=== PATIENT | male | born 1970 | race Caucasian/White ===

== ENCOUNTER 2019-03-01 06:05 | Observation (INO) ==
[2019-03-01] MEDS ORDERED: CeFAZolin Syr 2,000MG/20 ML 2,000 MG/20 ML SYRINGE IVPB ONE (06:25)
[2019-03-01] MEDS ORDERED: Albuterol 2.5 MG/3 ML NEBULIZER IH PRN ×2 (06:25→07:06)
[2019-03-01] MEDS ORDERED: Ringers Solution, Lactated 1,000 ML IVC SCH (06:30)
[2019-03-01] MEDS ORDERED: Ondansetron 4 MG/2 ML VIAL IVP ONE (07:06)
[2019-03-01] MEDS ORDERED: Acetaminophen IV 1,000 MG/100 ML INFUS..BTL IVPB ONE (07:06)
[2019-03-01] MEDS ORDERED: *HR* Labetalol 20 MG/4 ML SYRINGE IVP PRN (07:06)
[2019-03-01] MEDS ORDERED: *HR* OxyCODONE Immed Rel 5 MG TABLET PO PRN (07:06)
[2019-03-01] MEDS ORDERED: *HR* Promethazine 25 MG/ML VIAL IVP PRN (07:06)
[2019-03-01] MEDS ORDERED: Gabapentin 300 MG CAPSULE PO ONE (07:06)
[2019-03-01] MEDS ORDERED: Lidocaine -MPF 4% 5 ML AMPUL ONE (07:07)
[2019-03-01] MEDS ORDERED: *HR* Midazolam HCl 2 MG/2 ML VIAL ONE (07:07)
[2019-03-01] MEDS ORDERED: Lidocaine -MPF 2% 2 ML VIAL ONE ×2 (07:07→10:16)
[2019-03-01] MEDS ORDERED: *HR* FentaNYL (PF) 100 MCG/2 ML VIAL ONE ×2 (07:07→10:39)
[2019-03-01] MEDS ORDERED: *HR* Succinylcholine 200 MG/10 ML VIAL IVP ONE (07:07)
[2019-03-01] MEDS ORDERED: *HR* Propofol 200 MG/20 ML VIAL IVP ONE (07:07)
[2019-03-01] MEDS ORDERED: Dexamethasone 4 MG/ML VIAL ONE (07:07)
[2019-03-01] MEDS ORDERED: *HR* Remifentanil 1 MG VIAL IVP ONE ×2 (07:21→09:26)
[2019-03-01] MEDS ORDERED: Heparin 1,000 UNITS/500 mL 500 ML ONE (07:33)
[2019-03-01] MEDS ORDERED: Bacitracin 50,000 UNIT, Polymyxin B Sulfate 500,000 UNIT, Sodium Chloride IRRigation 1,... IR ONE (07:45)
[2019-03-01] MEDS ORDERED: *HR* PHENYLEPHRINE 1,000 MCG/10 ML SYRINGE IVP ONE ×3 (08:05→10:31)
[2019-03-01] MEDS ORDERED: *HR* Phenylephrine 10 MG/ML VIAL ONE (08:16)
[2019-03-01] MEDS ORDERED: Neostigmine Methylsulfate 3 MG/3 ML SYRINGE ONE (09:40)
[2019-03-01] MEDS: *HR* HYDROmorphone (PF) 1 MG/ML SYRINGE IVP PRN ×4 (11:27→11:48)
[2019-03-01] MEDS ORDERED: Ibuprofen 800 MG TABLET PO PRN (13:04)
[2019-03-01] MEDS ORDERED: Naloxone 0.4 MG/ML INJ IVP PRN (13:04)
[2019-03-01] MEDS ORDERED: Ondansetron 4 MG/2 ML VIAL IVP PRN (13:04)
[2019-03-01] MEDS ORDERED: Acetaminophen 325 MG TABLET PO PRN (13:04)
[2019-03-01] MEDS ORDERED: diazePAM 2 MG TABLET PO PRN (14:09)
[2019-03-01] MEDS: *HR* OxyCODONE Immed Rel 5 MG TABLET PO PRN ×2 (15:01→20:09)
[2019-03-01] MEDS: Ringers Solution, Lactated 1,000 ML IVC SCH ×2 (19:18→23:05)
[2019-03-02] MEDS: *HR* OxyCODONE Immed Rel 5 MG TABLET PO PRN ×4 (01:32→15:08)
[2019-03-02] MEDS: *HR* HYDROcodone/Acet 5/325 mg TABLET PO PRN ×2 (04:21→13:01)
[2019-03-02] MEDS: Lisinopril 20 MG TABLET PO SCH (09:16)
[2019-03-02] MEDS: Gabapentin 400 MG CAPSULE PO SCH ×2 (17:25→21:43)
[2019-03-02] MEDS: diazePAM 2 MG TABLET PO PRN (17:31)
[2019-03-02] MEDS: Nicotine 21 MG PATCH.TD24 TD SCH (17:32)
[2019-03-02] MEDS: Acetaminophen 325 MG TABLET PO SCH (17:34)
[2019-03-02] MEDS: Mirtazapine 15 MG TABLET PO SCH (20:24)
[2019-03-03] MEDS: Acetaminophen 325 MG TABLET PO SCH ×4 (01:55→16:45)
[2019-03-03] MEDS: *HR* OxyCODONE Immed Rel 5 MG TABLET PO PRN ×4 (01:57→22:00)
[2019-03-03] MEDS: diazePAM 2 MG TABLET PO PRN ×2 (03:04→12:10)
[2019-03-03] MEDS: *HR* HYDROcodone/Acet 5/325 mg TABLET PO PRN (08:03)
[2019-03-03] MEDS: Nicotine 21 MG PATCH.TD24 TD SCH (08:03)
[2019-03-03] MEDS: Lisinopril 20 MG TABLET PO SCH (08:04)
[2019-03-03] MEDS: Gabapentin 400 MG CAPSULE PO SCH ×3 (08:04→21:59)
[2019-03-03] MEDS: Mirtazapine 15 MG TABLET PO SCH (21:59)
[2019-03-04] MEDS: Acetaminophen 325 MG TABLET PO SCH ×5 (00:35→23:23)
[2019-03-04] MEDS: *HR* OxyCODONE Immed Rel 5 MG TABLET PO PRN ×3 (03:40→20:14)
[2019-03-04] MEDS: Gabapentin 400 MG CAPSULE PO SCH ×3 (09:56→20:13)
[2019-03-04] MEDS: Lisinopril 20 MG TABLET PO SCH (09:56)
[2019-03-04] MEDS: Nicotine 21 MG PATCH.TD24 TD SCH (09:58)
[2019-03-04] MEDS: *HR* HYDROcodone/Acet 5/325 mg TABLET PO PRN (18:30)
[2019-03-04] MEDS: Ringers Solution, Lactated 1,000 ML IVC SCH ×3 (19:31→20:27)
[2019-03-04] MEDS: Mirtazapine 15 MG TABLET PO SCH (20:13)
[2019-03-05] MEDS: diazePAM 2 MG TABLET PO PRN (03:29)
[2019-03-05] MEDS: Acetaminophen 325 MG TABLET PO SCH ×2 (05:31→12:17)
[2019-03-05] MEDS: *HR* OxyCODONE Immed Rel 5 MG TABLET PO PRN (05:31)
[2019-03-05] MEDS: Lisinopril 20 MG TABLET PO SCH (09:23)
[2019-03-05] MEDS: Gabapentin 400 MG CAPSULE PO SCH (09:23)
[2019-03-05] MEDS: *HR* HYDROcodone/Acet 5/325 mg TABLET PO PRN (09:23)
[2019-03-05] MEDS: Nicotine 21 MG PATCH.TD24 TD SCH (09:24)
[2019-03-05] MEDS: Ringers Solution, Lactated 1,000 ML IVC SCH (09:24)
[2019-03-05 11:50] VITALS: BP 122/78
== END 2019-03-05 12:27 | disposition home or self-care (01) ==
LOC: SAMDAY 06:05 → 3NENU 06:05
PROVIDERS: ADMIT Orthopaedic Surgery Orthopaedic Surgery of the Spine; ATTEND Orthopaedic Surgery Orthopaedic Surgery of the Spine

== ENCOUNTER 2021-04-15 06:16 | Inpatient (IN) ==
[~2021-04-15 06:16] MED LIST: Acetaminophen IV 1,000 MG/100 ML BAG IVPB ONE; Famotidine 20 MG/2 ML VIAL IVP ONE; Polymyxin B Sulfate 500,000 UNIT, Sodium Chloride IRRigation 1,000 ML IR ONE; Pregabalin 75 MG CAPSULE PO ONE
[2021-04-15] MEDS ORDERED: CeFAZolin Syr 2,000MG/20 ML 2,000 MG/20 ML SYRINGE IVPB ONE (06:52)
[2021-04-15] MEDS ORDERED: Ringers Solution, Lactated 1,000 ML IVC SCH (07:00)
[2021-04-15] MEDS ORDERED: Ipratropium/Albuterol Neb 3 ML IH ONE (07:11)
[2021-04-15] MEDS ORDERED: Vancomycin 1,000 MG VIAL ONE (07:15)
[2021-04-15] MEDS ORDERED: *HR* Remifentanil 2 MG VIAL IVP ONE (07:21)
[2021-04-15] MEDS ORDERED: *HR* Midazolam HCl 2 MG/2 ML VIAL ONE (07:23)
[2021-04-15] MEDS ORDERED: *HR* FentaNYL (PF) 100 MCG/2 ML VIAL ONE (07:23)
[2021-04-15] MEDS ORDERED: *HR* Propofol 200 MG/20 ML VIAL IVP ONE (07:23)
[2021-04-15] MEDS ORDERED: *HR* Rocuronium Bromide 50 MG/5 ML VIAL ONE (07:24)
[2021-04-15] MEDS ORDERED: Ondansetron 4 MG/2 ML VIAL ONE (07:24)
[2021-04-15] MEDS ORDERED: Lidocaine HCL 4 ML Topical Solution (Laryng-O-Jet Kit Sterile Pak) TP ONE (07:24)
[2021-04-15] MEDS ORDERED: Lidocaine -MPF 2% 5 ML VIAL ONE (07:24)
[2021-04-15] MEDS ORDERED: *HR* Succinylcholine 200 MG/10 ML VIAL IVP ONE (07:24)
[2021-04-15] MEDS ORDERED: *HR* Phenylephrine 10 MG/ML VIAL ONE (09:11)
[2021-04-15] MEDS ORDERED: Ondansetron 4 MG/2 ML VIAL IVP PRN ×2 (09:28→13:02)
[2021-04-15] MEDS ORDERED: Albuterol 2.5 MG/3 ML NEBULIZER IH PRN (09:28)
[2021-04-15] MEDS ORDERED: *HR* HYDROmorphone PF 0.5 MG/0.5 ML SYRINGE IVP PRN (09:28)
[2021-04-15] MEDS ORDERED: *HR* HYDROMORPHONE 2 MG/ML VIAL ONE (10:18)
[2021-04-15] MEDS: *HR* FentaNYL (PF) 100 MCG/2 ML VIAL IVP PRN ×4 (11:08→11:40)
[2021-04-15] MEDS ORDERED: Acetaminophen 325 MG TABLET PO PRN (13:02)
[2021-04-15] MEDS ORDERED: Naloxone 0.4 MG/ML INJ IVP PRN (13:02)
[2021-04-15] MEDS: Gabapentin 300 MG CAPSULE PO SCH ×2 (14:16→20:32)
[2021-04-15] MEDS: *HR* OxyCODONE Immed Rel 5 MG TABLET PO PRN (14:16)
[2021-04-15] MEDS: Ringers Solution, Lactated 1,000 ML IVC SCH (20:32)
[2021-04-16] MEDS: *HR* OxyCODONE Immed Rel 5 MG TABLET PO PRN ×3 (03:20→17:37)
[2021-04-16] MEDS: Ringers Solution, Lactated 1,000 ML IVC SCH ×2 (07:38→18:47)
[2021-04-16] MEDS: lisinopriL 20 MG TABLET PO SCH (08:25)
[2021-04-16] MEDS: Aspirin Enteric Coated 81 MG Tablet PO SCH (08:25)
[2021-04-16] MEDS: Gabapentin 300 MG CAPSULE PO SCH ×3 (08:25→20:46)
[2021-04-16 10:16] LABS: Hematocrit 46.4 % (37.5-50.1); Hemoglobin 15.5 g/dL (12.9-16.9); Mean Corpuscular HGB Conc 33.4 g/dL (31.6-35.5); Mean Corpuscular Hemoglobin 31.5 pg (28.0-33.3); Mean Corpuscular Volume 94.3 fL (83.0-100.0); Mean Platelet Volume 10.1 fL (9.4-12.4); Platelet Count 242 K/mcL (140-400); Red Blood Count 4.92 M/mcL (4.19-5.50); Red Cell Distribution Width 14.2 % (11.5-14.5); White Blood Count 19.7 K/mcL (4.3-11.1)
[2021-04-16] MEDS: tiZANidine 4 MG TABLET PO PRN ×2 (11:01→20:46)
[2021-04-16 12:22] LABS: BUN/Creatinine Ratio 26 (6-26); Blood Urea Nitrogen 18 mg/dL (6-20); Carbon Dioxide 26 mEq/L (23-29); Chloride 100 mEq/L (98-107); Glucose 103 mg/dL (70-105); Osmolality,Calculated 286 (280-300); Potassium 3.8 mEq/L (3.5-5.1); Sodium 137 mEq/L (136-145); Troponin I < 0.03 ng/mL (< 0.04); eGFR For African Americans > 60 (> 60); eGFR For Non-African Americans > 60 (> 60)
[2021-04-16] MEDS ORDERED: Ipratropium/Albuterol Neb 3 ML IH PRN (13:16)
[2021-04-16] MEDS: Ipratropium/Albuterol Neb 3 ML IH SCH ×2 (16:01→20:28)
[2021-04-17] MEDS: *HR* OxyCODONE Immed Rel 5 MG TABLET PO PRN ×5 (01:27→18:18)
[2021-04-17] MEDS: Ipratropium/Albuterol Neb 3 ML IH SCH ×5 (03:42→21:33)
[2021-04-17 05:13] LABS: Basophils # 0.1 K/mcL (0.0-0.2); Basophils % 0.3 %; Eosinophils % 0.1 %; Hematocrit 46.2 % (37.5-50.1); Hemoglobin 15.2 g/dL (12.9-16.9); Immature Granulocytes % 0.6 % (0-4); Lymphocytes % 15.6 %; Mean Corpuscular HGB Conc 32.9 g/dL (31.6-35.5); Mean Corpuscular Volume 94.3 fL (83.0-100.0); Mean Platelet Volume 10.4 fL (9.4-12.4); Monocytes # 1.7 K/mcL (0.0-1.3); Monocytes % 8.8 %; Neutrophils # 14.1 K/mcL (1.6-8.9); Platelet Count 237 K/mcL (140-400); Red Cell Distribution Width 14.3 % (11.5-14.5); Segmented Neutrophils % 74.6 %; White Blood Count 18.9 K/mcL (4.3-11.1)
[2021-04-17 05:25] LABS: BUN/Creatinine Ratio 29 (6-26); Blood Urea Nitrogen 20 mg/dL (6-20); Calcium 8.5 mg/dL (8.6-10.3); Carbon Dioxide 24 mEq/L (23-29); Chloride 103 mEq/L (98-107); Glucose 90 mg/dL (70-105); Osmolality,Calculated 278 (280-300); Potassium 3.9 mEq/L (3.5-5.1); Sodium 133 mEq/L (136-145); eGFR For African Americans > 60 (> 60); eGFR For Non-African Americans > 60 (> 60)
[2021-04-17] MEDS: Gabapentin 300 MG CAPSULE PO SCH ×3 (08:41→19:41)
[2021-04-17] MEDS: lisinopriL 20 MG TABLET PO SCH (08:41)
[2021-04-17] MEDS: Aspirin Enteric Coated 81 MG Tablet PO SCH (08:41)
[2021-04-17] MEDS: tiZANidine 4 MG TABLET PO PRN (08:42)
[2021-04-18] MEDS: Ipratropium/Albuterol Neb 3 ML IH SCH ×4 (03:24→20:08)
[2021-04-18 05:37] LABS: Basophils % 0.3 %; Eosinophils # 0.1 K/mcL (0.0-0.6); Eosinophils % 0.7 %; Hemoglobin 15.5 g/dL (12.9-16.9); Immature Granulocytes % 0.4 % (0-4); Lymphocytes # 2.4 K/mcL (0.6-4.6); Lymphocytes % 17.6 %; Mean Corpuscular HGB Conc 33.7 g/dL (31.6-35.5); Mean Corpuscular Hemoglobin 31.4 pg (28.0-33.3); Mean Corpuscular Volume 93.3 fL (83.0-100.0); Mean Platelet Volume 10.3 fL (9.4-12.4); Monocytes # 1.2 K/mcL (0.0-1.3); Monocytes % 8.7 %; Neutrophils # 9.8 K/mcL (1.6-8.9); Platelet Count 248 K/mcL (140-400); Red Blood Count 4.93 M/mcL (4.19-5.50); Red Cell Distribution Width 13.9 % (11.5-14.5); Segmented Neutrophils % 72.3 %; White Blood Count 13.5 K/mcL (4.3-11.1)
[2021-04-18 05:48] LABS: BUN/Creatinine Ratio 30 (6-26); Blood Urea Nitrogen 18 mg/dL (6-20); Calcium 8.8 mg/dL (8.6-10.3); Carbon Dioxide 25 mEq/L (23-29); Chloride 100 mEq/L (98-107); Glucose 110 mg/dL (70-105); Magnesium 1.8 mg/dL (1.6-2.6); Osmolality,Calculated 277 (280-300); Phosphorous 2.8 mg/dL (2.7-4.5); Potassium 3.8 mEq/L (3.5-5.1); Sodium 132 mEq/L (136-145); eGFR For African Americans > 60 (> 60); eGFR For Non-African Americans > 60 (> 60)
[2021-04-18] MEDS: Gabapentin 300 MG CAPSULE PO SCH ×3 (07:33→20:02)
[2021-04-18] MEDS: *HR* OxyCODONE Immed Rel 5 MG TABLET PO PRN ×3 (07:34→20:02)
[2021-04-18] MEDS: lisinopriL 20 MG TABLET PO SCH (07:34)
[2021-04-18] MEDS: Aspirin Enteric Coated 81 MG Tablet PO SCH (07:34)
[2021-04-18] MEDS ORDERED: *HR* HYDROcodone/Acet 7.5/325 mg TABLET PO ONE (08:57)
[2021-04-18] MEDS: tiZANidine 4 MG TABLET PO PRN (10:06)
[2021-04-18] MEDS: Nicotine 14 MG PATCH.TD24 TD SCH (10:28)
[2021-04-18] MEDS: diazePAM 5 MG TABLET PO PRN ×2 (10:33→21:14)
[2021-04-18] MEDS: polyethylene glycoL 3350 17 GM POWD.PACK PO SCH (11:42)
[2021-04-18] MEDS ORDERED: Fluticasone Propionate Nasal 50 MCG/SPRAY BOTTLE NS PRN (21:59)
[2021-04-19] MEDS: *HR* OxyCODONE Immed Rel 5 MG TABLET PO PRN ×3 (00:08→20:00)
[2021-04-19] MEDS: tiZANidine 4 MG TABLET PO PRN (02:36)
[2021-04-19] MEDS: Ipratropium/Albuterol Neb 3 ML IH SCH ×4 (04:12→20:43)
[2021-04-19] MEDS: Gabapentin 300 MG CAPSULE PO SCH ×3 (09:37→20:00)
[2021-04-19] MEDS: lisinopriL 20 MG TABLET PO SCH (09:37)
[2021-04-19] MEDS: Aspirin Enteric Coated 81 MG Tablet PO SCH (09:38)
[2021-04-19] MEDS: Nicotine 14 MG PATCH.TD24 TD SCH (09:38)
[2021-04-19] MEDS: polyethylene glycoL 3350 17 GM POWD.PACK PO SCH (09:38)
[2021-04-19] MEDS: diazePAM 5 MG TABLET PO PRN ×2 (13:53→22:01)
[2021-04-20] MEDS: Ipratropium/Albuterol Neb 3 ML IH SCH ×4 (03:36→20:16)
[2021-04-20] MEDS ORDERED: *HR* OxyCODONE Immed Rel 5 MG TABLET PO ONE (04:27)
[2021-04-20] MEDS: Gabapentin 300 MG CAPSULE PO SCH ×3 (07:46→20:52)
[2021-04-20] MEDS: Aspirin Enteric Coated 81 MG Tablet PO SCH (07:46)
[2021-04-20] MEDS: Nicotine 14 MG PATCH.TD24 TD SCH (07:46)
[2021-04-20] MEDS: diazePAM 5 MG TABLET PO PRN ×2 (07:46→16:01)
[2021-04-20] MEDS: lisinopriL 20 MG TABLET PO SCH (07:46)
[2021-04-20] MEDS: *HR* OxyCODONE Immed Rel 5 MG TABLET PO PRN ×3 (07:46→19:14)
[2021-04-20] MEDS: polyethylene glycoL 3350 17 GM POWD.PACK PO SCH (07:46)
[2021-04-21] MEDS: Ipratropium/Albuterol Neb 3 ML IH SCH ×4 (03:56→20:11)
[2021-04-21] MEDS: Gabapentin 300 MG CAPSULE PO SCH ×3 (08:21→22:39)
[2021-04-21] MEDS: Nicotine 14 MG PATCH.TD24 TD SCH (08:22)
[2021-04-21] MEDS: Aspirin Enteric Coated 81 MG Tablet PO SCH (08:22)
[2021-04-21] MEDS: lisinopriL 20 MG TABLET PO SCH (08:22)
[2021-04-21] MEDS: *HR* OxyCODONE Immed Rel 5 MG TABLET PO PRN ×2 (08:22→14:50)
[2021-04-21] MEDS: polyethylene glycoL 3350 17 GM POWD.PACK PO SCH (08:25)
[2021-04-21] MEDS: diazePAM 5 MG TABLET PO PRN ×2 (12:59→22:39)
[2021-04-21] MEDS: *HR* HYDROcodone/Acet 10/325 mg TABLET PO PRN (19:18)
[2021-04-22] MEDS: *HR* HYDROcodone/Acet 10/325 mg TABLET PO PRN ×2 (01:50→20:27)
[2021-04-22] MEDS: tiZANidine 4 MG TABLET PO PRN (02:13)
[2021-04-22] MEDS: Ipratropium/Albuterol Neb 3 ML IH SCH ×4 (03:19→20:11)
[2021-04-22] MEDS: Nicotine 14 MG PATCH.TD24 TD SCH (08:08)
[2021-04-22] MEDS: polyethylene glycoL 3350 17 GM POWD.PACK PO SCH (08:08)
[2021-04-22] MEDS: Aspirin Enteric Coated 81 MG Tablet PO SCH (08:09)
[2021-04-22] MEDS: Gabapentin 300 MG CAPSULE PO SCH ×3 (08:09→20:26)
[2021-04-22] MEDS: lisinopriL 20 MG TABLET PO SCH (08:10)
[2021-04-22] MEDS: diazePAM 5 MG TABLET PO PRN ×2 (09:54→18:36)
[2021-04-22 13:25] LABS: Basophils # 0.1 K/mcL (0.0-0.2); Basophils % 0.4 %; Eosinophils # 0.3 K/mcL (0.0-0.6); Eosinophils % 1.7 %; Hematocrit 45.1 % (37.5-50.1); Hemoglobin 15.4 g/dL (12.9-16.9); Immature Granulocytes % 0.6 % (0-4); Lymphocytes # 2.1 K/mcL (0.6-4.6); Lymphocytes % 14.2 %; Mean Corpuscular HGB Conc 34.1 g/dL (31.6-35.5); Mean Corpuscular Hemoglobin 32.2 pg (28.0-33.3); Mean Corpuscular Volume 94.2 fL (83.0-100.0); Mean Platelet Volume 10.1 fL (9.4-12.4); Monocytes # 1.4 K/mcL (0.0-1.3); Monocytes % 9.3 %; Neutrophils # 10.7 K/mcL (1.6-8.9); Platelet Count 367 K/mcL (140-400); Red Blood Count 4.79 M/mcL (4.19-5.50); Red Cell Distribution Width 13.5 % (11.5-14.5); Segmented Neutrophils % 73.8 %; White Blood Count 14.5 K/mcL (4.3-11.1)
[2021-04-22] MEDS ORDERED: MOM Conc 10 ML UD.LIQ PO PRN (18:00)
[2021-04-23] MEDS ORDERED: 0.9 % Sodium Chloride 500 ML IVC ONE (09:29)
[2021-04-23] MEDS: Aspirin Enteric Coated 81 MG Tablet PO SCH (10:41)
[2021-04-23] MEDS: Gabapentin 300 MG CAPSULE PO SCH ×3 (10:42→20:15)
[2021-04-23] MEDS: lisinopriL 20 MG TABLET PO SCH (10:42)
[2021-04-23] MEDS: polyethylene glycoL 3350 17 GM POWD.PACK PO SCH (10:42)
[2021-04-23] MEDS: Nicotine 14 MG PATCH.TD24 TD SCH (10:42)
[2021-04-23] MEDS: 0.9 % Sodium Chloride 1,000 ML IVC SCH ×2 (10:43→20:20)
[2021-04-23] MEDS: *HR* HYDROcodone/Acet 10/325 mg TABLET PO PRN ×2 (11:09→17:49)
[2021-04-23] MEDS: diazePAM 5 MG TABLET PO PRN (12:54)
[2021-04-23] MEDS: tiZANidine 4 MG TABLET PO PRN (20:16)
[2021-04-24] MEDS: *HR* HYDROcodone/Acet 10/325 mg TABLET PO PRN ×4 (02:51→19:02)
[2021-04-24] MEDS: diazePAM 5 MG TABLET PO PRN ×2 (05:59→19:34)
[2021-04-24] MEDS: Gabapentin 300 MG CAPSULE PO SCH ×3 (07:51→21:37)
[2021-04-24] MEDS: Aspirin Enteric Coated 81 MG Tablet PO SCH (07:51)
[2021-04-24] MEDS: polyethylene glycoL 3350 17 GM POWD.PACK PO SCH (07:52)
[2021-04-24] MEDS: lisinopriL 20 MG TABLET PO SCH (07:52)
[2021-04-24] MEDS: Nicotine 14 MG PATCH.TD24 TD SCH (07:52)
[2021-04-24] MEDS: tiZANidine 4 MG TABLET PO PRN ×2 (11:04→21:37)
[2021-04-25] MEDS: *HR* HYDROcodone/Acet 10/325 mg TABLET PO PRN ×2 (00:59→05:28)
[2021-04-25 06:36] VITALS: BP 109/64; PULSE 87; TEMP 97.8; O2SAT 96
[2021-04-25] MEDS: Gabapentin 300 MG CAPSULE PO SCH (08:20)
[2021-04-25] MEDS: Aspirin Enteric Coated 81 MG Tablet PO SCH (08:20)
[2021-04-25] MEDS: lisinopriL 20 MG TABLET PO SCH (08:21)
[2021-04-25] MEDS: Nicotine 14 MG PATCH.TD24 TD SCH (08:22)
[2021-04-25] MEDS: polyethylene glycoL 3350 17 GM POWD.PACK PO SCH (08:22)
== END 2021-04-25 10:33 | disposition home or self-care (01) | DRG 304 ==
LOC: SDCAOSI 06:16 → 4WAOSI 06:16
PROVIDERS: ADMIT Orthopaedic Surgery Orthopaedic Surgery of the Spine; ATTEND Orthopaedic Surgery Orthopaedic Surgery of the Spine